=== PATIENT | female | born 1960 | race Caucasian/White ===

== ENCOUNTER 2019-02-16 05:46 | Day surgery (SDC) | payer MEDICARE, OTHER ==
[~2019-02-16] VITALS: Ht 152.4 cm; Wt 60.2 kg
[2019-02-16] MEDS ORDERED: HIGH CHOLESTEROL MED (06:36)
[2019-02-16] MEDS ORDERED: OMEPRAZOLE (06:36)
[2019-02-16 06:44] VITALS: BP 129/60; PULSE 62; RESP 12
[2019-02-16] MEDS ORDERED: MIDAZOLAM 1 MG/ML 2 ML INJ ONE (08:05)
[2019-02-16] MEDS ORDERED: FENTAnyl 50 MCG/ML VIAL ONE (08:05)
[2019-02-16 08:26] VITALS: BP 110/55; RESP 20
--- NOTE | 2019-02-16 13:02 | CONS ---
DATE OF ADMISSION: 02/16/2019 DATE OF CONSULTATION: PATIENT NAME: KIARA GONZALEZ TYPE OF CONSULTATION: Preoperative gastroenterology. Dear Dr. Edwards: I thank you very much for this kind referral. HISTORY OF PRESENT ILLNESS: Ms. Kiara Gonzalez is a 58-year-old female patient who has been referre d to me for further evaluation of chronic heartburn not completely responding to therapy with omepraz ole. No past history of peptic ulcer disease. Not on nonsteroidal anti-inflammatory agents. No his tory of gallstones or liver disease. The patient had colon cancer diagnosed 3 years ago and she unde rwent radiation, chemotherapy and surgery. She states she had a colonoscopy done 4 months ago and no recurrent colon neoplasm was identified. She denies any change in the bowel habit or rectal bleedin g. Not a hypertensive or diabetic. No heart disease, lung problem or kidney disease. Has got hyper lipidemia. SOCIAL HISTORY: Nonsmoker. No alcohol abuse. FAMILY HISTORY: The patient's father had stomach cancer. PHYSICAL EXAMINATION: VITAL SIGNS: She is 5 feet tall and weighs 130 pounds, BMI 25, blood pressure 124/72. HEART: Normal heart sounds. LUNGS: Clear. ABDOMEN: Soft. No masses. Normal bowel sounds. NEUROLOGIC: Normal. IMPRESSION: 1. Chronic heartburn, not responding to therapy with omeprazole. 2. The patient's father had stomach cancer. 3. History of rectal cancer for which she has undergone radiation, chemotherapy and surgery. 4. She states she had a colonoscopy done 4 months ago and no recurrent colon neoplasm was identified . 5. Hyperlipidemia. PLAN: 1. Upper endoscopy for further evaluation. 2. Follow up with the primary MD for watching the BMI and blood pressure. The procedure and possible complications are well explained to the patient. She understands and cons ents to the procedure. I thank you once again. With warmest personal regards, Dictated By: LUBA CHIU/MARTHA Conf#: [id number] DID#: [id number]
== END 2019-02-16 09:53 | disposition home or self-care (01) ==
LOC: GIL 05:46
PROVIDERS: ATTEND Internal Medicine Gastroenterology
DX: K21.9 Gastro-esophageal reflux disease without esophagitis (principal); K29.60 Other gastritis without bleeding; E78.5 Hyperlipidemia, unspecified
CPT/HCPCS: 43239; 88305; J2250; J3010